=== PATIENT | male | born 1990 | race African-American/Black ===

== ENCOUNTER 2018-09-22 15:13 | Emergency (ER) | payer MEDICAID ==
[~2018-09-22] VITALS: Ht 165.1 cm; Wt 77.1 kg
[2018-09-22 16:15] VITALS: BP 132/83
[2018-09-22] MEDS ORDERED: cefTRIAXone SOD 1,000 MG VL IM ONE (17:30)
== END 2018-09-22 18:06 | disposition home or self-care (01) ==
LOC: ER 15:19
DX: J20.9 Acute bronchitis, unspecified (principal); J03.90 Acute tonsillitis, unspecified; F17.210 Nicotine dependence, cigarettes, uncomplicated
CPT/HCPCS: 71045; 71046; 96372; 99283; J0696